=== PATIENT | male | born 1995 | race Asian ===

== ENCOUNTER → 2020-03-21 | Outpatient (CLI) | payer BC ==
[2020-03-21 09:22] LABS: CHLORIDE 103 mEq/L (98-107)
[2020-03-21 09:29] LABS: LDL CHOLESTEROL 219 mg/dL (5-100)
[2020-03-21 09:31] LABS: CREATINE KINASE 162 IU/L (39-308); HDL CHOLESTEROL 71 mg/dL (40-59)
== END | disposition home or self-care (01) ==
LOC: LAB 08:21
PROVIDERS: ATTEND Internal Medicine
DX: E78.5 Hyperlipidemia, unspecified (principal)
CPT/HCPCS: 36415; 80053; 80061; 82550